=== PATIENT | male | born 1950 | race Caucasian/White ===

== ENCOUNTER 2017-05-28 17:06 | Inpatient (IN) | payer OTHER ==
[~2017-05-28] VITALS: Ht 167.6 cm; Wt 76.7 kg
[2017-05-28 18:04] LABS: BASOPHIL % 0.5 % (0-2); PLATELET COUNT 284 x10^3mcL (130-400); RED CELL DISTRIBUTION WIDTH 13.4 % (11.5-14.5)
[2017-05-28 18:14] LABS: ALBUMIN 3.6 g/dL (3.4-5.0); ALKALINE PHOSPHATASE 143 U/L (46-116); ALT/SGPT 33 U/L (16-63); AST/SGOT 13 U/L (15-37); BILIRUBIN TOTAL 0.3 mg/dL (0.20-1.00); CALCIUM 10.5 mg/dL (8.5-10.1); CHLORIDE SERUM 100 mmol/L (98-107); CREATININE SERUM 1.1 mg/dL (0.7-1.3); GFR1 > 60 mL/min; GLUCOSE SERUM 256 mg/dL (74-106); SODIUM SERUM 139 mmol/L (136-145); TOTAL PROTEIN, SERUM 7.5 g/dL (6.4-8.2)
[2017-05-28 18:17] LABS: POTASSIUM SERUM 2.9 mmol/L (3.5-5.1)
[2017-05-28 18:26] LABS: microscopic required? NO
[2017-05-28 19:03] LABS: UA SPECIFIC GRAVITY >=1.030 (1.005-1.035); urine erythrocyte NEGATIVE (NEGATIVE)
[2017-05-28] MEDS ORDERED: LIPI20 PO (20:03)
[2017-05-28] MEDS ORDERED: ENALAPRIL MALEA10 MG PO (20:04)
[2017-05-28] MEDS ORDERED: METFORMIN HCL1000 MG (20:04)
[2017-05-28] MEDS ORDERED: METFORMIN HCL1000 MG PO (20:04)
[2017-05-28] MEDS ORDERED: HYDROCHLOROTHIA25 MG PO (20:04)
[2017-05-28] MEDS ORDERED: TAMSULOSIN HCL0.4 MG PO (20:05)
[2017-05-28] MEDS ORDERED: VERAPAMIL HCL240 MG PO (20:05)
[2017-05-28] MEDS ORDERED: RIZATRIPTAN BEN10 M1 PO (20:05)
[2017-05-28] MEDS ORDERED: ZANAFLEX CAPSULE4 MG PO (20:05)
[2017-05-28] MEDS ORDERED: INDERAL XL80 MG PO (20:05)
[2017-05-28] MEDS ORDERED: ROBAXIN-750750 MG GT (20:06)
[2017-05-28] MEDS ORDERED: IBUPROFEN400 MG (20:06)
[2017-05-28] MEDS ORDERED: GABAPENTIN600 M1 PO (20:06)
[2017-05-28 20:14] LABS: MAGNESIUM 1.5 mg/dL (1.8-2.4); PHOSPHOROUS 4.6 mg/dL (2.5-4.9)
[2017-05-28 20:15] LABS: T3 TOTAL 1.1 ng/mL
[2017-05-28 20:16] LABS: CHOLESTEROL/HDL RATIO 2.8
[2017-05-28 20:21] LABS: FREE T4 1.1 ng/dL (0.76-1.46); FREE THYROXINE INDEX 3.2 ug/dL (1.4-4.5)
[2017-05-28 20:59] VITALS: BP 156/72
[2017-05-28] MEDS ORDERED: ROBAXIN-750750 MG PO (23:35)
[2017-05-28] MEDS ORDERED: TIZANIDINE4 M1 PO ×2 (23:37→23:39)
[2017-05-29 01:10] LABS: CARBON DIOXIDE 29.3 mmol/L (21-32); CHLORIDE SERUM 104 mmol/L (98-107); CREATININE SERUM 0.9 mg/dL (0.7-1.3); GFR1 > 60 mL/min; GLUCOSE SERUM 252 mg/dL (74-106); POTASSIUM SERUM 3.4 mmol/L (3.5-5.1); SODIUM SERUM 139 mmol/L (136-145)
[2017-05-29 01:15] LABS: CALCIUM 9.5 mg/dL (8.5-10.1)
[2017-05-29 05:53] VITALS: BP 116/69
[2017-05-29 06:47] LABS: CARBON DIOXIDE 28.5 mmol/L (21-32); CHLORIDE SERUM 103 mmol/L (98-107); CREATININE SERUM 0.8 mg/dL (0.7-1.3); GFR1 > 60 mL/min; GLUCOSE SERUM 174 mg/dL (74-106); MAGNESIUM 2.1 mg/dL (1.8-2.4); PHOSPHOROUS 3.7 mg/dL (2.5-4.9); POTASSIUM SERUM 3.6 mmol/L (3.5-5.1); SODIUM SERUM 139 mmol/L (136-145)
[2017-05-29 06:58] LABS: BASOPHIL % 0.5 % (0-2); PLATELET COUNT 232 x10^3mcL (130-400); RED CELL DISTRIBUTION WIDTH 13.3 % (11.5-14.5)
[2017-05-29 08:31] VITALS: BP 151/85
[2017-05-29 13:14] VITALS: Ht 167.6 cm; Wt 76.7 kg
[2017-05-29 14:14] VITALS: BP 108/64
[2017-05-29] MEDS ORDERED: GOOD SENSE ASPI81 M3 PO (14:20)
[2017-05-29] MEDS ORDERED: GLIPIZIDE ER5 M1 PO (15:23)
[2017-05-29] MEDS ORDERED: TOPROL XL25 MG PO (15:36)
[2017-05-29] MEDS ORDERED: POTASSIUM CHLO10 MEQ PO (15:40)
== END 2017-05-29 16:59 | disposition home or self-care (01) | DRG 392 ==
LOC: ED 17:06 → DU 19:16
PROVIDERS: Emergency Medicine; Family Medicine
DX: K21.9 Gastro-esophageal reflux disease without esophagitis (principal); D68.69 Other thrombophilia; E11.59 Type 2 diabetes mellitus with other circulatory complications; E11.65 Type 2 diabetes mellitus with hyperglycemia; E87.6 Hypokalemia; E83.42 Hypomagnesemia; E11.42 Type 2 diabetes mellitus with diabetic polyneuropathy; E83.52 Hypercalcemia; E78.1 Pure hyperglyceridemia; I10 Essential (primary) hypertension; G43.909 Migraine, unspecified, not intractable, without status migrainosus; M54.5 Low back pain; G89.29 Other chronic pain; Z98.1 Arthrodesis status; Z79.84 Long term (current) use of oral hypoglycemic drugs; Z79.1 Long term (current) use of non-steroidal anti-inflammatories (NSAID); Z68.27 Body mass index [BMI] 27.0-27.9, adult
CPT/HCPCS: 82962; 83880; 84439; 90658; 90732; J1815; J3475; J3480; J7030; Q0092

== ENCOUNTER 2018-08-21 22:08 | Emergency (ER) | payer OTHER ==
[~2018-08-21] VITALS: Ht 160 cm; Wt 88.5 kg
[~2018-08-21 22:08] MED LIST: ENALAPRIL MALEA10 MG PO; GABAPENTIN600 M1 PO; GLIPIZIDE ER5 M1 PO; GOOD SENSE ASPI81 M3 PO; HYDROCHLOROTHIA25 MG PO; IBUPROFEN400 MG; INDERAL XL80 MG PO; LIPI20 PO; METFORMIN HCL1000 MG; METFORMIN HCL1000 MG PO; POTASSIUM CHLO10 MEQ PO; RIZATRIPTAN BEN10 M1 PO; ROBAXIN-750750 MG GT; ROBAXIN-750750 MG PO; TAMSULOSIN HCL0.4 MG PO; TIZANIDINE4 M1 PO; TOPROL XL25 MG PO; VERAPAMIL HCL240 MG PO; ZANAFLEX CAPSULE4 MG PO
[2018-08-21 22:13] VITALS: Ht 160 cm; Wt 88.5 kg
[2018-08-22 00:03] VITALS: BP 135/78
== END 2018-08-22 00:03 | disposition home or self-care (01) ==
LOC: ED 22:08
DX: E11.649 Type 2 diabetes mellitus with hypoglycemia without coma (principal); Z85.46 Personal history of malignant neoplasm of prostate; E78.00 Pure hypercholesterolemia, unspecified; G89.29 Other chronic pain; M54.9 Dorsalgia, unspecified; Z98.890 Other specified postprocedural states
CPT/HCPCS: 82962